=== PATIENT | male | born 1990 | race Two or more races ===

== ENCOUNTER 2019-07-01 16:58 | Emergency (ER) | payer OTHER ==
[~2019-07-01] VITALS: Ht 172.7 cm; Wt 79.4 kg
--- NOTE | 2019-07-01 17:07 | NUR ---
pt called, not in waiting at this time.
[2019-07-01 17:25] VITALS: BP 127/84
--- NOTE | 2019-07-01 17:57 | Emergency Room Report ---
History of Present Illness General Chief Complaint: Upper Respiratory Illness Source: Patient Present Illness HPI 29-year-old male with no significant past medical history who is a heavy tobacco smoker and also uses marijuana on daily basis here complaining of 4 days of cough and congestion with phlegm production. Complains of posttussive chest pain however denies any pain radiation and chest pain at rest. Denies headache and dizziness. Sitting comfortably with stable vital signs. Appears to be under the influence of nonspecific stimulant. Denies fever and chills, recent travel, concomitant with who recently traveled. Vital signs are within normal limits. Patient is afebrile. Denies abdominal pain, headache and dizziness, nausea vomiting. Has not taken medication for symptom relief. Complains of minimal wheezing. Allergies: Coded Allergies: No Known Allergies (Unverified , 07/01/19) Patient History Past Medical History: see triage record Past Surgical History: none Pertinent Family History: none Social History: Reports: smoking, drug use - marijuana Immunizations: UTD Reviewed Nursing Documentation: PMH: Agreed; PSxH: Agreed Nursing Documentation-PMH Past Medical History: No Stated History Review of Systems All Other Systems: negative except mentioned in HPI Physical Exam Vital Signs Date Time Temp Pulse Resp B/P (MAP) Pulse Ox O2 Delivery O2 Flow Rate FiO2 07/01/19 17:25 97.5 96 16 127/84 (98) 96 Room Air Sp02 EP Interpretation: reviewed, normal General Appearance: no apparent distress, alert, GCS 15, non-toxic Head: normocephalic, atraumatic Eyes: bilateral eye normal inspection, bilateral eye PERRL ENT: hearing grossly normal, normal pharynx, no angioedema, normal voice Neck: full range of motion, supple, thyroid normal, no meningismus, no bony tend, supple/symm/no masses Respiratory: chest non-tender, no rhonchi, no respiratory distress, no retraction, no accessory muscle use, speaking full sentences, wheezing - Minimal wheezing noted diffusely Cardiovascular #1: regular rate, rhythm, no edema, no murmur Gastrointestinal: soft, no mass, no bruit Rectal: deferred Genitourinary: no CVA tenderness Musculoskeletal: back normal, no calf tenderness, pelvis stable, gait/station normal Neurologic: alert, motor strength/tone normal, oriented x3, sensory intact, responsive, speech normal Psychiatric: judgement/insight normal, memory normal, mood/affect normal, no suicidal/homicidal ideation Skin: no rash, palpation normal, normal color, warm/dry Lymphatic: no adenopathy Medical Decision Making PA Attestation All my diagnosis and treatment plans were reviewed ad discussed with my supervising physician Dr. Tobin Diagnostic Impression: Primary Impression: Pneumonitis ER Course 29-year-old male with no significant past medical history who is a heavy tobacco smoker and also uses marijuana on daily basis here complaining of 4 days of cough and congestion with phlegm production. Complains of posttussive chest pain however denies any pain radiation and chest pain at rest. Denies headache and dizziness. Sitting comfortably with stable vital signs. Appears to be under the influence of nonspecific stimulant. Denies fever and chills, recent travel, concomitant with who recently traveled. Vital signs are within normal limits. Patient is afebrile. Denies abdominal pain, headache and dizziness, nausea vomiting. Has not taken medication for symptom relief. Complains of minimal wheezing. Ddx considered but are not limited to: bronchitis, PNA, URI viral, bacterial bronchitis, pneumonitis Vital signs: are WNL, pt. is afebrile H&PE are most consistent with: Pneumonitis ORDERS: Chest x-ray, azithromycin, Medrol Dosepak, Phenergan DM for nighttime, guaifenesin syrup for daytime, albuterol inhaler ED INTERVENTIONS: None required at this time. DISCHARGE: At this time pt. is stable for d/c to home. Will provide printed patient care instructions, and any necessary prescriptions. Care plan and follow up instructions have been discussed with the patient prior to discharge. Patient take medication as directed, follow-up with primary care provider, increase oral hydration, if worsening symptoms return to the emergency room also avoid smoking. Chest X-Ray Diagnostic Results Chest X-Ray Diagnostic Results : Chest X-Ray Ordered: Yes # of Views/Limited/Complete: 1 View Indication: Other - Cough EP Interpretation: Yes SYD Xray: Interpretation reviewed, by supervising MD, and agrees with findings. Interpretation: no consolidation, no effusion, no pneumothorax, no acute cardiopulmonary disease Impression: No acute disease Electronically Signed by: Yordan Aldrich PA-C Last Vital Signs Date Time Temp Pulse Resp B/P (MAP) Pulse Ox O2 Delivery O2 Flow Rate FiO2 07/01/19 17:34 89 15 Room Air 07/01/19 17:25 97.5 127/84 96 Disposition: HOME, SELF-CARE Condition: Stable Scripts Albuterol Sulfate (VENTOLIN HFA) 18 Gm Hfa.aer.ad 2 PUFFS INH EVERY 6 HOURS, #18 GM 0 Refills Prov: Yordan Winn 07/01/19 Guaifenesin* (GUAIFENESIN*) 100 Mg/5 Ml Liquid 5 ML ORAL Q8H, #120 ML 0 Refills Prov: Yordan Winn 07/01/19 D-Methorphan Hb/Prometh Hcl* (PROMETHAZINE-DM SYRUP*) 118 Ml Syrup 5 ML ORAL BEDTIME PRN for For Cough, #120 ML 0 Refills Prov: Yordan Winn 07/01/19 Azithromycin* (ZITHROMAX*) 250 Mg Tablet 250 MG ORAL DAILY, #6 TAB 0 Refills Take two tables once daily for 1 day, then one tablet once daily for 4 days. Prov: Yordan Winn 07/01/19 Patient Instructions: Pneumonitis Additional Instructions: Take medication as directed, follow-up with your primary care provider, avoid smoking, increase oral hydration, if worsening symptoms return to the emergency room Yordan Winn Jul 01, 2019 17:57
[2019-07-01] MEDS ORDERED: GUAIFENESI100 MG/5 M ORAL (17:59)
[2019-07-01] MEDS ORDERED: PROMETHAZINE-D118 ML ORAL (17:59)
[2019-07-01] MEDS ORDERED: VENTOLIN HFA18 GM INH (17:59)
[2019-07-01] MEDS ORDERED: ZITHROMAX250 MG ORAL (17:59)
[2019-07-01 18:20] VITALS: BP 134/70
--- NOTE | 2019-07-01 18:20 | NUR ---
ER DISCHARGE NOTE: Pt was seen due to coughing/congestion. Patient is cleared to be discharged per PA, pt is aox4, on room air, with stable vital signs. pt was given dc and prescription instructions, pt was able to verbalize understanding, pt id band removed without complications. pt is able to ambulate with steady gait. pt took all belongings.
--- NOTE | 2019-07-02 12:30 | Diagnostic Imaging Report ---
Indication: Cough Comparison: None A single view chest radiograph was obtained. Findings: Cardiomediastinal appearance is within normal limits for age. The lungs are clear. Pulmonary vascularity is appropriate. The diaphragmatic contour is smooth and costophrenic angles are sharp. No pleural effusions are identified. The bones are unremarkable. Impression: No acute findings
== END 2019-07-01 18:20 | disposition home or self-care (01) ==
LOC: EMR 17:56
DX: J18.9 Pneumonia, unspecified organism (principal); F17.210 Nicotine dependence, cigarettes, uncomplicated
CPT/HCPCS: 71045; Z7502; 99283